=== PATIENT | female | born 1955 | race Caucasian/White ===

== ENCOUNTER 2017-05-15 14:05 | Emergency (ER) | payer BC ==
[2017-05-15] MEDS ORDERED: ONDANSETRON HCL 4 MG/2 ML VIAL ONE (14:35)
[2017-05-15] MEDS ORDERED: DIPHENHYDRAMINE 50 MG/ML VIAL ONE (15:03)
[2017-05-15] MEDS ORDERED: METOCLOPRAMIDE HCL 10 MG/2 ML VIAL ONE (15:03)
[2017-05-15 15:04] LABS: BLOOD UREA NITROGEN 14 mg/dL (7-17); CALCIUM 9.7 mg/dL (8.4-10.2); CHLORIDE 107 mmol/L (98-107); EST GLOMERULAR FILTRATION RATE > 60 mL/min; GLUCOSE 115 mg/dL (70-100); POTASSIUM 4.1 mmol/L (3.5-5.1); SODIUM 144 mmol/L (137-145)
[2017-05-15] MEDS ORDERED: SODIUM CHLORIDE IRRIG 1,000 ML BOTTLE IRRIGATION ONE (17:15)
[2017-05-15] MEDS ORDERED: SODIUM CHLORIDE IV ONE (17:16)
[2017-05-15] MEDS ORDERED: NORMAL SALINE FLUSH 200 ML ONE (17:16)
--- NOTE | 2017-05-15 18:03 | ER PHYSICIAN DOCUMENTATION ---
Physician Documentation [facility] Name:Stephania Nunez Age:61 yrs Sex:Female :1955 Arrival Date:05/15/2017 Time:14:05 Bed4 Private MD:No PCP, Identified ED TeresaSee gaffney Disposition: 05/15/17 16:14 Discharged to Home/Self Care. Impression: Gastroenteritis. - Condition is Good. - Discharge Instructions: GASTROENTERITIS, Viral [5y-Adult]. - Prescriptions for Zofran 4 mg Oral Tablet - take 1-2 tablet by ORAL route every 4-6 hours As needed; 10 tablet. - Medical Reconciliation form form. - Follow up: Private Physician; When: As needed; Reason: Continuance of care. - Problem is new. - Symptoms have improved. HPI: 05/15 16:12 This 61 yrs old Female presents to ER via Private Vehicle with complaints of jm Vomiting. 16:12 The patient presents to the emergency department with nausea, with vomiting, with jm diarrhea, without any complaints of abdominal pain. Onset: The symptom(s)/episode began/occurred yesterday, at 23:00. Possible causes: unknown. Associated signs and symptoms: Pertinent negatives: abdominal pain. Severity of symptoms: in the emergency department the symptoms are unchanged. Historical: - Allergies: dairy; Bactrim; - Home Meds: 1. lailda 2. probiotics 3. hormones - PMHx: ULCERATIVE COLITIS; - PSHx: ; - Tetanus: unknown. - Ebola Screening: : Patient negative for fever greater than or equal to 101.5 degrees Fahrenheit, and additional compatible Ebola Virus Disease symptoms. Patient denies exposure to infectious person. Patient denies travel to an Ebola-affected area in the 21 days before illness onset. No symptoms or risks identified at this time. . - Immunization history: Flu Vaccine unknown. - Social history: Smoking status: Patient states was never smoker of tobacco. ROS: 16:12 Constitutional: Positive for fatigue, malaise. jm 16:12 Abdomen/GI: Positive for nausea, vomiting, diarrhea, Negative for abdominal pain. 16:12 Neuro: Positive for weakness. 16:12 All other systems are negative. Exam: 16:13 Constitutional: The patient appears alert, awake, obviously ill. jm 16:13 ENT: Mouth: Oral mucosa: dry, Posterior pharynx: is normal. 16:13 Cardiovascular: Rate: normal, Rhythm: regular. 16:13 Respiratory: the patient does not display signs of respiratory distress, Respirations: normal. 16:13 Abdomen/GI: Bowel sounds: active, Palpation: abdomen is soft and non-tender. 16:13 Neuro: Mentation: is normal, Memory: is normal. 16:13 Psych: Behavior/mood is pleasant, cooperative, Affect is calm. Vital Signs: 14:13 BP 151 / 87; Pulse 111; Resp 16; Temp 98.3(O); Pulse Ox 93% ; Weight 68.04 kg (R); tg Height 5 ft. 6 in. (167.64 cm) (R); Pain 4/10; 15:54 BP 132 / 83 (auto/); tg 15:55 Pulse Ox 96% ; tg 17:52 BP 141 / 86; Pulse 101; Resp 16; Pulse Ox 95% on R/A; lp 14:13 Body Mass Index 24.21 (68.04 kg, 167.64 cm) tg MDM: 14:10 Patient medically screened. 16:13 Differential diagnosis: viral gastroenteritis, gastroenteritis. Data reviewed: vital jm signs, nurses notes, lab test result(s), and as a result, I will discharge patient. Counseling: I had a detailed discussion with the patient and/or guardian regarding: the historical points, exam findings, and any diagnostic results supporting the discharge/admit diagnosis, lab results, the need for outpatient follow up, with the patient's primary care provider. Medication response: The patient's symptoms have improved. Response to treatment: the patient's symptoms have markedly improved after treatment. ED course: Pt better after meds. Will DC home w zofran. . 05/15 15:06 Order name: BASIC METABOLIC PANEL; Complete Time: 16:05 EDMS 05/15 14:40 Order name: Pulse Ox Continuous; Complete Time: 14:45 05/15 16:59 Order name: PO Challenge; Complete Time: 16:59 tg Dispensed Medications: 14:40 Drug: Zofran 4 mg; Route: IVP; Infused Over: 2 mins; Site: left antecubital; tg 16:36 Follow up: Response: Nausea is decreased tg 14:40 Drug: NS 0.9% 2000 ml; Route: IV; Rate: bolus; Site: left antecubital; Delivery: tg [place] Tubing; 16:36 Follow up: IV Status: Completed infusion; IV Intake: 2000ml tg 14:58 Drug: Reglan 5 mg; Route: IVP; Site: left antecubital; tg 16:35 Follow up: Response: Nausea is decreased; Pain is decreased tg 14:58 Drug: Benadryl 25 mg; Route: IVP; Site: left antecubital; tg 16:36 Follow up: Response: Nausea is decreased tg 16:58 Drug: NS 0.9% 1000 ml; Route: IV; Rate: bolus; Site: left antecubital; Delivery: tg [place] Tubing; 17:53 Follow up: Response: No adverse reaction; IV Status: Completed infusion; IV Intake: lp 1000ml Point of Care Testing: Urine Dip: 16:46 pH: 5; ; Specific [place]: 1.02; Glucose: Negative; Protein: Negative; Leukocytes: tg Negative; Nitrite: Negative ; Blood: Non Hemolyzed Trace; Bilirubin: Negative ; Urobilinogen: Normal Signatures: Landen Hood RN RN See Erickson MD MD jm Hofsess, Rachel Summer Nicole RN
--- NOTE | 2017-05-15 18:03 | ER NURSING DOCUMENTATION ---
Nurse's Notes [facility] Name:Stephania Nunez Age:61 yrs Sex:Female :1955 Arrival Date:05/15/2017 Time:14:05 Bed4 Private MD:No PCP, Identified Diagnosis:Gastroenteritis Presentation: 05/15 14:13 Acuity: NIKOLAI 3 tg 14:16 Presenting complaint: Patient states: N/V/D since yesterday. Transition of care: tg patient was not received from another setting of care. 14:16 Method Of Arrival: Private Vehicle tg Triage Assessment: 14:38 General: Appears uncomfortable, well developed, well nourished, well groomed, Behavior tg is cooperative, quiet. Pain: Complains of pain in diffuse crampy ABD pain. Neuro: Level of Consciousness is awake, alert. Neuro: Reports headache. Cardiovascular: Capillary refill < 3 seconds. Respiratory: Respiratory effort is even, unlabored. GI: Reports diarrhea, nausea, vomiting. Derm: Skin is pink, warm & dry. Historical: - Allergies: dairy; Bactrim; - Home Meds: 1. lailda 2. probiotics 3. hormones - PMHx: ULCERATIVE COLITIS; - PSHx: ; - Tetanus: unknown. - Ebola Screening: : Patient negative for fever greater than or equal to 101.5 degrees Fahrenheit, and additional compatible Ebola Virus Disease symptoms. Patient denies exposure to infectious person. Patient denies travel to an Ebola-affected area in the 21 days before illness onset. No symptoms or risks identified at this time. . - Immunization history: Flu Vaccine unknown. - Social history: Smoking status: Patient states was never smoker of tobacco. Screenin:42 Infectious Disease Risk Unable to Obtain. Abuse screen: Denies threats or abuse. Denies tg injuries from another. Nutritional screening: No deficits noted. Assessment: 15:45 Reassessment: Patient states feeling better. Patient states symptoms have improved. tg Patient appears in no apparent distress at this time. Vital Signs: 14:13 BP 151 / 87; Pulse 111; Resp 16; Temp 98.3(O); Pulse Ox 93% ; Weight 68.04 kg (R); tg Height 5 ft. 6 in. (167.64 cm) (R); Pain 4/10; 15:54 BP 132 / 83 (auto/); tg 15:55 Pulse Ox 96% ; tg 17:52 BP 141 / 86; Pulse 101; Resp 16; Pulse Ox 95% on R/A; lp 14:13 Body Mass Index 24.21 (68.04 kg, 167.64 cm) tg ED Course: 14:07 Patient arrived in ED. ds 14:07 No PCP, Identified is Private Physician. ds 14:10 See Erickson MD is Attending Physician. jm 14:13 Triage completed. tg 14:16 Arm band placed on. tg 14:38 Landen Hood, GYPSY is Primary Nurse. tg 14:42 Valuables Remains with patient. tg 14:42 Inserted peripheral IV: 18 gauge in left antecubital area and blood collected. tg Administered Medications: 14:40 Drug: Zofran 4 mg; Route: IVP; Infused Over: 2 mins; Site: left antecubital; tg 16:36 Follow up: Response: Nausea is decreased tg 14:40 Drug: NS 0.9% 2000 ml; Route: IV; Rate: bolus; Site: left antecubital; Delivery: tg [place] Tubing; 16:36 Follow up: IV Status: Completed infusion; IV Intake: 2000ml tg 14:58 Drug: Reglan 5 mg; Route: IVP; Site: left antecubital; tg 16:35 Follow up: Response: Nausea is decreased; Pain is decreased tg 14:58 Drug: Benadryl 25 mg; Route: IVP; Site: left antecubital; tg 16:36 Follow up: Response: Nausea is decreased tg 16:58 Drug: NS 0.9% 1000 ml; Route: IV; Rate: bolus; Site: left antecubital; Delivery: tg [place] Tubing; 17:53 Follow up: Response: No adverse reaction; IV Status: Completed infusion; IV Intake: lp 1000ml Point of Care Testing: Urine Dip: 16:46 pH: 5; ; Specific [place]: 1.02; Glucose: Negative; Protein: Negative; Leukocytes: tg Negative; Nitrite: Negative ; Blood: Non Hemolyzed Trace; Bilirubin: Negative ; Urobilinogen: Normal Intake: 16:36 IV: 2000ml; Total: 2000ml. tg 17:53 IV: 1000ml; Total: 3000ml. lp Outcome: 16:14 Discharge ordered by . 17:52 Discharged to home ambulatory. lp 17:52 Condition: good 17:52 Instructed on discharge instructions, follow up and referral plans. medication usage. 18:02 Patient left the ED. 05/16 15:45 Discharge F/U Call: Spoke with: patient. other: Name: pt is no longer having N/V/D st but still feels weak. Pt is drinking fluids and eating some food. pt had no questions or concerns. Signatures: Landen Hood RN RN tg [place]omb[place], Summer, RN RN st Pavlish, Lena, RN RN lp Srot, Deandra, Wenceslao Reg See Curry MD MD jm Hofsess, Rachel
== END 2017-05-15 18:03 | disposition home or self-care (01) ==
LOC: ER 14:05
DX: K52.89 Other specified noninfective gastroenteritis and colitis (principal); E86.0 Dehydration; R53.83 Other fatigue; R53.81 Other malaise; R53.1 Weakness
CPT/HCPCS: 80048; 96361; 96374; 96375; 99284; A4217; J1200; J2405; J2765; J7030